=== PATIENT | female | born 2000 ===

== ENCOUNTER 2019-02-19 21:34 | Emergency (ER) | payer BC ==
--- NOTE | 2019-02-19 22:08 | RAD ---
XR Chest Insp/Exp HISTORY: Food stuck in throat Findings: Heart size and mediastinum are within normal limits. The lungs are clear of any infiltrates . No evidence of radiopaque foreign bodies. No evidence of any pneumomediastinum. IMPRESSION: No active intrathoracic disease. No signs of pneumothorax or pneumomediastinum.
== END 2019-02-19 22:24 | disposition home or self-care (01) ==
LOC: SCSER 21:34
DX: T17.920A Food in respiratory tract, part unspecified causing asphyxiation, initial encounter (principal)
CPT/HCPCS: 71045